=== PATIENT | female | born 1960 | race Caucasian/White ===

== ENCOUNTER 2021-02-01 14:20 | Outpatient (CLI) | payer OTHER, SELFPAY ==
[2021-02-01 16:41] LABS: Alanine Aminotransferase 13 U/L (4-35); Aspartate Amino Transferase 31 U/L (14-36)
== END 2021-02-01 14:21 | disposition home or self-care (01) ==
LOC: ANHLAB 14:26
PROVIDERS: PCP Family Medicine Adolescent Medicine; Visit Provider Podiatrist Foot & Ankle Surgery
DX: B35.1 Tinea unguium (principal)
CPT/HCPCS: 36415; 84450; 84460

== ENCOUNTER 2021-05-10 07:28 | Outpatient (CLI) | payer OTHER, SELFPAY ==
[2021-05-10 08:11] LABS: Alanine Aminotransferase 16 U/L (4-35); Aspartate Amino Transferase 24 U/L (14-36)
== END 2021-05-10 07:29 | disposition home or self-care (01) ==
LOC: ANHLAB 07:30
PROVIDERS: PCP Family Medicine Adolescent Medicine; Visit Provider Podiatrist Foot & Ankle Surgery
DX: B35.1 Tinea unguium (principal)
CPT/HCPCS: 36415; 84450; 84460

== ENCOUNTER 2021-07-08 07:18 | Outpatient (CLI) | payer OTHER, SELFPAY ==
[2021-07-08 07:56] LABS: Alanine Aminotransferase 17 U/L (4-35); Aspartate Amino Transferase 23 U/L (14-36)
== END 2021-07-08 07:19 | disposition home or self-care (01) ==
PROVIDERS: PCP Family Medicine Adolescent Medicine; Visit Provider Podiatrist Foot & Ankle Surgery
DX: B35.1 Tinea unguium (principal)
CPT/HCPCS: 36415; 84450; 84460

== ENCOUNTER 2022-10-12 12:31 | Outpatient (CLI) | payer OTHER, SELFPAY ==
[2022-10-12 13:32] LABS: Alanine Aminotransferase 15 U/L (6-35); Aspartate Amino Transferase 24 U/L (14-36)
== END 2022-10-12 12:32 | disposition home or self-care (01) ==
LOC: ANHLAB 12:34
PROVIDERS: PCP Family Medicine Adolescent Medicine; Visit Provider Podiatrist Foot & Ankle Surgery
DX: B35.1 Tinea unguium (principal)
CPT/HCPCS: 36415; 84450; 84460

== ENCOUNTER 2023-09-06 07:13 | Outpatient (CLI) | payer OTHER, SELFPAY ==
[2023-09-06 08:24] LABS: Alanine Aminotransferase 13 U/L (6-35); Aspartate Amino Transferase 37 U/L (14-36)
== END 2023-09-06 07:14 | disposition home or self-care (01) ==
LOC: ANHLAB 07:15
PROVIDERS: PCP Family Medicine Adolescent Medicine; Visit Provider Podiatrist Foot & Ankle Surgery
DX: B35.1 Tinea unguium (principal)
CPT/HCPCS: 36415; 84450; 84460

== ENCOUNTER 2024-03-13 07:01 | Outpatient (CLI) | payer OTHER, SELFPAY ==
[2024-03-13 08:44] LABS: Alanine Aminotransferase 12 U/L (6-35); Aspartate Amino Transferase 23 U/L (14-36)
== END 2024-03-13 07:02 | disposition home or self-care (01) ==
LOC: ANHLAB 07:05
PROVIDERS: PCP Family Medicine Adolescent Medicine; Visit Provider Podiatrist Foot & Ankle Surgery
DX: B35.1 Tinea unguium (principal)
CPT/HCPCS: 36415; 84450; 84460

== ENCOUNTER 2025-03-14 06:57 | Outpatient (CLI) | payer OTHER, SELFPAY ==
[2025-03-14 08:34] LABS: Alanine Aminotransferase 13 U/L (6-35); Aspartate Amino Transferase 26 U/L (14-36)
== END 2025-03-14 06:58 | disposition home or self-care (01) ==
LOC: ANHLAB 07:01
PROVIDERS: PCP Family Medicine Adolescent Medicine; Visit Provider Podiatrist Foot & Ankle Surgery
DX: B35.1 Tinea unguium (principal)
CPT/HCPCS: 36415; 84450; 84460